=== PATIENT | male | born 1995 | race Caucasian/White ===

== ENCOUNTER 2022-08-18 09:49 | Emergency (ER) | payer OTHER ==
[~2022-08-18] VITALS: Ht 182.9 cm; Wt 90.7 kg
[2022-08-18] MEDS ORDERED: Amphetamine Sal20 MG PO (09:59)
[2022-08-18] MEDS ORDERED: Naprosyn500 MG PO (10:28)
== END 2022-08-18 11:02 | disposition home or self-care (01) ==
LOC: ER 09:49
DX: R09.1 Pleurisy (principal); F17.290 Nicotine dependence, other tobacco product, uncomplicated; Z79.899 Other long term (current) drug therapy
CPT/HCPCS: 71046; J1885

== ENCOUNTER 2022-11-25 09:51 | Emergency (ER) | payer OTHER ==
[~2022-11-25] VITALS: Ht 182.9 cm; Wt 90.7 kg
[~2022-11-25 09:51] MED LIST: Amphetamine Sal20 MG PO; Naprosyn500 MG PO
[2022-11-25 10:07] VITALS: BP 154/83
[2022-11-25] MEDS ORDERED: AMOCLA875 PO (10:09)
== END 2022-11-25 10:27 | disposition home or self-care (01) ==
LOC: ER 09:51
DX: S91.051A Open bite, right ankle, initial encounter (principal); L03.115 Cellulitis of right lower limb; F17.290 Nicotine dependence, other tobacco product, uncomplicated; W54.0XXA Bitten by dog, initial encounter
CPT/HCPCS: 99282

== ENCOUNTER 2024-03-09 17:12 | Emergency (ER) | payer SELFPAY ==
[~2024-03-09] VITALS: Ht 182.9 cm; Wt 99.8 kg
[~2024-03-09 17:12] MED LIST changes: +AMOCLA875 PO
[2024-03-09] MEDS ORDERED: Lidocaine 4% 1 Patch TOP ONE (17:45)
[2024-03-09] MEDS ORDERED: Ibuprofen 600 MG Tab PO ONE (17:45)
[2024-03-09] MEDS ORDERED: Acetaminophen 500 MG Tab PO ONE (17:45)
[2024-03-09] MEDS ORDERED: ACET500 PO (18:11)
[2024-03-09] MEDS ORDERED: MOTRIN IB200 MG PO (18:11)
[2024-03-09 18:20] VITALS: BP 122/84
== END 2024-03-09 18:22 | disposition home or self-care (01) ==
LOC: ER 17:12
DX: R07.89 Other chest pain (principal); Z79.899 Other long term (current) drug therapy
CPT/HCPCS: 71046; 93005; 93010; 99285-25; A9270